=== PATIENT | female | born 1930 | race Hispanic/Latino ===

== ENCOUNTER 2018-12-29 15:14 | Observation (INO) | payer MEDICARE, BC ==
--- NOTE | 2018-12-29 16:02 | C.PDOC ---
History Of Present Illness 88 year old female with PMHx of hypertension and hyperlipidemia presents to ED for evaluation of intermittent chest pain she has had for the past 3 days. Patient cannot characterize the pain. Pain is currently pain free and was seen by her PMD, Dr. Art Sloan, who sent her to the ED for further evaluation. Patient states that she took an aspirin today. She denies trauma, fall, fever, chills, SOB, palpitations, light headedness, dizziness, weakness, and numbness. Time Seen by Provider: 12/29/18 15:47 Chief Complaint (Nursing): Chest Pain History Per: Patient History/Exam Limitations: no limitations Onset/Duration Of Symptoms: Days (3), Intermittent Episodes Current Symptoms Are (Timing): Better Quality: "Pain" Associated Symptoms: denies: Nausea, Dyspnea Past Medical History Reviewed: Historical Data, Nursing Documentation, Vital Signs Vital Signs: Last Vital Signs Temp 97.3 F L 12/29/18 15:16 Pulse 52 L 12/29/18 15:16 Resp 16 12/29/18 15:16 BP 149/74 12/29/18 15:16 Pulse Ox 97 12/29/18 15:16 Primary Care Provider: Art Sloan - Medical History PMH: HTN, Hyperlipidemia, Hypothyroidism Surgical History: No Surg Hx - [facility] Procedures IRRIGATION OF EAR (02/24/13) Family History: States: Unknown Family Hx - Social History Hx Alcohol Use: No Hx Substance Use: No Review Of Systems Except As Marked, All Systems Reviewed And Found Negative. Cardiovascular: Positive for: Chest Pain Physical Exam - Physical Exam Appears: Well, Non-toxic, No Acute Distress Skin: Normal Color, Warm, Dry Head: Atraumatic, Normacephalic Eye(s): bilateral: Normal Inspection, PERRL, EOMI Oral Mucosa: Moist Neck: Normal ROM, Supple Chest: Symmetrical, No Deformity, No Tenderness Cardiovascular: Rhythm Regular, No Murmur Respiratory: No Accessory Muscle Use, No Rales, No Rhonchi, No Wheezing Gastrointestinal/Abdominal: Bowel Sounds (normoactive), Soft, No Tenderness Extremity: Capillary Refill (<2 seconds) Pulses: Left Radial: Normal, Right Radial: Normal Neurological/Psych: Oriented x3, Normal Speech, Normal Cognition ED Course And Treatment - Laboratory Results Result Diagrams: 12/29/18 16:06 12/29/18 16:06 ECG: Interpreted By Me, Viewed By Me ECG Rhythm: Sinus Rhythm, PVC ECG Interpretation: Normal Rate From EC O2 Sat by Pulse Oximetry: 97 (in RA) Pulse Ox Interpretation: Normal - Radiology CXR: Interpreted by Me, Viewed By Me CXR Interpretation: Yes: No Acute Disease Nexus Criteria: Negative Medical Decision Making Medical Decision Making: Impression:88 year old female with PMHx of hypertension and hyperlipidemia presents to ED for evaluation of intermittent chest pain she has had for the past 3 days. Initial Plan: EKG CMP troponin CBC PTT prothrombin CXR trop neg. updated pmd will obs. ro acspain free in er. Disposition - Disposition Disposition: WITH WITHOUT AUTOPSY Disposition Time: 19:00 Condition: STABLE - Clinical Impression Clinical Impression: Chest pain - Scribe Statement The provider has reviewed the documentation as recorded by the Scribe (Pat Vaughn) All medical record entries made by the Scribe were at my direction and personally dictated by me. I have reviewed the chart and agree that the record accurately reflects my personal performance of the history, physical exam, medical decision making, and the department course for this patient. I have also personally directed, reviewed, and agree with the discharge instructions and disposition. Decision To Admit - . Patient Diagnosis: Chest pain
[2018-12-29 16:10] LABS: BASO % 0.3 % (0.0-2.0); HEMOGLOBIN 14.1 g/dL (11.0-16.0); LYMPH # 2.1 K/uL (1.0-4.3); LYMPH % 33.6 % (20.0-40.0); MEAN CELL VOLUME 87.9 fL (81.0-99.0); MEAN CORPUSCULAR HEMOGLOBIN 29.8 pg (27.0-31.0); MEAN CORPUSCULAR HGB CONC 33.9 g/dL (33.0-37.0); MEAN PLATELET VOLUME 8.5 fL (7.2-11.7); MONO # 0.6 K/uL (0.0-0.8); MONO % 9.4 % (0.0-10.0); NEUT # 3.6 K/uL (1.8-7.0); NEUT % 56.7 % (50.0-75.0); NRBC % 0.2 % (0.0-2.0); RBC 4.72 Mil/uL (3.80-5.20); RED CELL DISTRIBUTION WIDTH 13.5 % (11.5-14.5); WHITE BLOOD COUNT 6.3 K/uL (4.8-10.8)
--- NOTE | 2018-12-29 16:22 | RAD ---
Date of service: 12/29/2018 PROCEDURE: CHEST RADIOGRAPH, 1 VIEW HISTORY: chest pain COMPARISON: None available. FINDINGS: LUNGS: The lungs are well inflated and clear. PLEURA: No pneumothorax or pleural effusion. CARDIOVASCULAR: The heart is normal in size. There are aortic atherosclerotic calcifications present. OSSEOUS STRUCTURES: Within normal limits for the patient's age. VISUALIZED UPPER ABDOMEN: Normal. OTHER FINDINGS: None. IMPRESSION: No active pulmonary disease.
[2018-12-29 16:34] LABS: ALB/GLOB RATIO 1.2 (1.0-2.1); ALT/SGPT 27 U/L (9-52); AST/SGOT 30 U/L (14-36); BLOOD UREA NITROGEN 36 mg/dL (7-17); CALCIUM 10.2 mg/dl (8.6-10.4); GFR NON-AFRICAN AMERICAN 59
[2018-12-30] MEDS: Levothyroxine 75 MCG TAB PO SCH (07:19)
[2018-12-30 09:00] LABS: CK-MB 0.78 ng/mL (0.0-3.38)
[2018-12-30] MEDS: Enoxaparin 40 mg Syringe SC SCH (10:07)
[2018-12-30] MEDS: Metoprolol Succinate 50 mg XL Tab PO SCH (10:07)
[2018-12-30 15:58] VITALS: RESP 20
--- NOTE | 2018-12-31 03:18 | HP ---
HISTORY OF PRESENT ILLNESS: This is an 88-year-old female with history of hypertension and high cholesterol, who was seen in the office and was found to have substernal chest pain, burning in nature for the last day prior to admission. EKG done in the office was unremarkable. Given multiple risk factors, she was advised to stay in the hospital. PERSONAL HISTORY: Does not smoke, does not drink. ALLERGIES: DENIED. FAMILY HISTORY: Negative for premature coronary artery disease. MEDICATIONS: At home include metoprolol, Norvasc, Synthroid, and Pravachol. REVIEW OF SYSTEMS: No generalized weakness. No fever, no chills. No visual disturbances. No neck pain, no swollen glands. No cough, no hemoptysis. Substernal burning as mentioned above. No palpitations. No shortness of breath. Gastrointestinal: Negative for hematemesis or melena. Genitourinary: Negative for hematuria. Neurologic: No TIAs, no CVAs, no headaches. Psychiatric: No evidence of depression. Musculoskeletal: History of severe knee problems, may require total knee replacement, under care of orthopedic surgeon, Dr. Madison Rojo. PAST MEDICAL HISTORY: Essentially unremarkable. PAST SURGICAL HISTORY: Negative. PHYSICAL EXAMINATION: GENERAL: An elderly female, who is conscious, alert, well oriented, younger than her age looking, in no acute distress. VITAL SIGNS: She is 5 feet and 5 inches and weighs 132 pounds. Blood pressure is 140/70, heart rate of 52 and regular, respiratory rate of 14, and afebrile. HEENT: Head is normocephalic. Eyes; no pallor, no icterus. NECK: Supple. LUNGS: Clear. CARDIAC: Normal S1 and S2. Systolic ejection murmur, grade 1-2/6 is noted in the mitral and aortic area. No gallops. ABDOMEN: Soft, nontender. EXTREMITIES: No cyanosis, clubbing, or edema. Distal pulses are intact. LABORATORY DATA: Routine labs: CBC, chem-7 are acceptable. First troponin was negative. All three troponins have been negative. EKG showed sinus bradycardia. ASSESSMENT: An 88-year-old female with history of atypical chest pain, possible coronary artery disease. PLAN: Obtain a Lexiscan in the morning. She is not a candidate for treadmill. Care of plan was explained to the patient and the family. Art Sloan MD [facility] # [id number]
[2018-12-31] MEDS: Levothyroxine 75 MCG TAB PO SCH (05:58)
[2018-12-31] MEDS ORDERED: Caffeine Citrated **INJ** 20 MG/ML IV ONE (08:48)
[2018-12-31] MEDS: Enoxaparin 40 mg Syringe SC SCH ×2 (10:56→13:38)
[2018-12-31] MEDS: Metoprolol Succinate 50 mg XL Tab PO SCH ×2 (10:56→13:37)
--- NOTE | 2019-01-01 01:03 | CARD ---
APPROVED REPORT Date of service: 12/30/2018 EKG Measurement Heart [id number] IN [id number] <Conclusion> Sinus bradycardia Septal infarct, age undetermined Abnormal ECG
--- NOTE | 2019-01-01 03:29 | CARD ---
APPROVED REPORT Date of service: 12/29/2018 EKG Measurement Heart [id number] <Conclusion> Sinus rhythm with frequent premature ventricular complexes Incomplete right bundle branch block Minimal voltage criteria for LVH, may be normal variant Borderline ECG
[2019-01-01] MEDS: Levothyroxine 75 MCG TAB PO SCH (05:35)
[2019-01-01 08:51] VITALS: BP 115/65; PULSE 58; TEMP 97.2; O2SAT 99
[2019-01-01] MEDS: Metoprolol Succinate 50 mg XL Tab PO SCH (09:19)
[2019-01-01] MEDS: Enoxaparin 40 mg Syringe SC SCH (09:19)
--- NOTE | 2019-01-01 11:45 | CARD ---
APPROVED REPORT Date of service: 12/31/2018 Protocol: LEXISCAN Test Type: LEXISCAN STRESS Test Indications: CP Target HR: 132 bpm Resting ECG: sinus lavelle,lvh,st t changes Resting Heart Rate: 54 bpm Resting Blood Pressure: 128/80mmHg submaximum (85%): 112 bpm TEST SUMMARY PREINFSNHYPERV.22:090.00..859420/80.0. INFUSIONDOSE 100:300.00.01.055/.1. [id number]:220.00..[id number]/80.20. PROCEDURE Pharmacologic stress testing was performed using 0.4mg per 5ml of regadenoson given intravenously over 7-10 seconds. POST EXERCISE Reason for Termination: Protocol Completed Target HR: No Max HR: 55 bpm 59% of Maximum Predicted HR: 132 bpm Exercise duration: 00:30 min:sec, 0 Stage Exercise capacity: 1.0METs Max Blood Pressure: 130/80mmHg Blood Pressure response to exercise: normal resting BP - appropriate response Heart Rate response to exercise: appropriate Chest Pain: No, none Angina index: 0 Arrhythmia: Yes, pvc ST Change: No, none Deviation: 0 mm INTERPRETATION Stress EKG Conclusion: completed lexiscan protocol.tolerated procedure well.no ekg changes.normal hr & bp resp[onse.nuclear to follow. EXAM: Myocardial Perfusion REST/STRESS Imaging Protocol The imaging protocol used to acquire images was Rest Tc-99m/stress Tc-99m 1 day Rest Spect myocardial perfusion imaging was performed in supine position 45 minutes following the injection of 12.5 mCi of Tc-99 Myoview. Gated Stress Spect was performed 45 minutes after intravenous 32.5 mCi Tc-99 Myoview injection. The images were gated to evaluate regional wall motion and calculate ventricular ejection fraction.Images were reconstructed using backfilter projection method in short horizontal and verticle long axis. Spect slices were generated. RESTING DATA EDV46.12lxNI9.00L/min ESV8.00mlMyocardial Mass84.00g Av. Heart Rate53.00bpm EF83.00% STRESS DATA EDV31.42wdQR8.70L/min ESV3.00mlMyocardial Mass69.00g EF90.00% Regional WT score at stress:1.00 Regional WM score at stress:0.00 Summed WT score at stress:4.00 Av. Heart Rate61.00bpmSummed WM score at stress:0.00 LV Perf. Quant 17 Seg. SSS1.00 17 Seg. SRS2.00 17 Seg. SDS0.00 Stress Defect Extent (% LAD)0.00Rest Defect Extent (% LAD)0.00Rev. Defect Extent (% LAD)0.00 Stress Defect Extent (% LCX)10.00Rest Defect Extent (% LCX)28.80Rev. Defect Extent (% LCX)0.00 Stress Defect Extent (% RCA)0.00Rest Defect Extent (% RCA)0.00Rev. Defect Extent (% RCA)0.00 Stress Defect Extent (% AMINA)1.70Rest Defect Extent (% AMINA)5.00Rev. Defect Extent (% AMINA)0.00 Other Information Quality:Good IMPRESSION Normal Myocardial Perfusion exercise stress study Left Ventricle LV Size/Shape: The left ventricle is grossly normal size. LV Function:The Ejection Fraction is 90% Regional Wall Motion:There is normal left ventricular wall motion. Conclusion 1. The left ventricle is grossly normal size. 2. The Ejection Fraction is 90% 3. There is normal left ventricular wall motion. 4. in both rest & post injection there is normal perfusion of all segments of lt ventricle. 5. normal study. 6. ct medical rx & control of all risk factors.if pt is still symptomatic consider coronary angio.
--- NOTE | 2019-01-02 07:01 | DS ---
HOSPITAL COURSE: An 88-year-old female was brought in with substernal burning. She has a history of hypertension, high cholesterol and osteoarthritis. Cardiac enzymes were negative. Lexiscan was negative. LVEF is 90%. The patient is stable, now will be discharged, to be continued on her medication for blood pressure, cholesterol and baby aspirin one a day. Protonix 40 mg p.o. once a day was added for possible gastrointestinal source of pain. If the patient continues to have symptoms of chest pains on Protonix, we will do coronary angiogram. FINAL DIAGNOSES: 1. Atypical chest pain. 2. Hypertension. 3. High cholesterol. 4. Severe osteoarthritis of the knees. Art Sloan MD
== END 2019-01-01 13:55 | disposition home or self-care (01) ==
LOC: C.ER 15:14 → C.9E 16:42 → C.5S 18:09
PROVIDERS: ADMIT Internal Medicine Cardiovascular Disease; ATTEND Internal Medicine Cardiovascular Disease
DX: R07.89 Other chest pain (principal); I10 Essential (primary) hypertension; E78.00 Pure hypercholesterolemia, unspecified; M17.0 Bilateral primary osteoarthritis of knee
CPT/HCPCS: 36415; 71045; 78452; 80053; 84484; 85025; 85610; 85730; 93005; 93017; 97116; 97162; 99285; A9502; G0378; G8978; G8979; J1650; J2785